=== PATIENT | female | born 1990 ===

== ENCOUNTER 2016-08-24 14:08 | Emergency (ER) | payer MEDICAID ==
--- NOTE | 2016-09-01 09:23 | ER ---
ADMIT: 08/24/2016 RM/LOC: ER [facility] MR#: [id number] [address] [id number] ESTRELLA BURGESS [address] [place] [id number] Emergency Room Report SEX: F AGE: 26 : 1990 DATE: 08/24/2016 HISTORY OF PRESENT ILLNESS: A 26-year-old female, noticed blood in her stool. Actually when she went to the bathroom, she saw a couple of drops of blood in the toilet water, and she got alarmed, and she also thinks she may be . PAST MEDICAL HISTORY: She has no past medical history. SOCIAL HISTORY: She is a smoker, half a pack a day and alcohol, drinks occasionally. Her last menstrual period went half a month ago. PHYSICAL EXAMINATION: VITAL SIGNS: Within normal limits. Blood pressure 128/62, pulse 78, respirations 14, temp 99.5, and O2 sats 97%. GENERAL: Alert, oriented, well-nourished, and well-developed female, very pleasant, in no acute distress. HEART AND LUNGS: Clear. ABDOMEN: Nontender. Bowel sounds are normal. RECTAL: No gross blood present. Heme was negative. Rectal exam nontender. SKIN: Good color and turgor. EXTREMITIES: Well perfused. NEURO/PSYCH: Mood and affect appropriate. Hemoccult was negative. The urine test was negative as well. CLINICAL IMPRESSION: Based on the physical examination, there is a possible rectal fissure. The patient was given hydrocortisone cream rectally for about a week to use it at night time. Follow up with primary provider. Discharged with instructions. ROBIN Durand / Rodolfo Bourgeois MD / pricila JOB #: [id number] CC: Rodolfo Bourgeois MD, Attending Physician Eden Vo MD, Family Physician
== END 2016-08-24 15:35 | disposition home or self-care (01) ==
LOC: ER 14:08
DX: K60.2 Anal fissure, unspecified (principal); F17.210 Nicotine dependence, cigarettes, uncomplicated